=== PATIENT | male | born 1980 ===

== ENCOUNTER 2021-12-29 06:00 | Day surgery (SDC) | payer OTHER ==
[2021-12-29] MEDS ORDERED: NEXIUM 24HR20 MG PO (08:48)
== END 2021-12-29 10:25 | disposition home or self-care (01) ==
LOC: AMB-ENDOS 06:00
PROVIDERS: ATTEND Surgery
DX: K44.9 Diaphragmatic hernia without obstruction or gangrene (principal); K29.70 Gastritis, unspecified, without bleeding